=== PATIENT | female | born 1960 | race Caucasian/White ===

== ENCOUNTER → 2019-04-03 15:30 | Outpatient (CLI) | payer OTHER, SELFPAY ==
--- NOTE | ~2019-04-03 | MR_ITS ---
EXAMINATION: MR cervical spine wo con DATE: 04/03/2019 16:25 INDICATION: Neck pain. Numbness and tingling of the right arm. Cervical radiculopathy. TECHNIQUE: Magnetic resonance imaging (MRI) of the cervical spine was performed without intravenous c ontrast. Sequences included sagittal T2-weighted FSE, sagittal STIR FSE, sagittal T1-weighted FSE, ax ial MERGE, and axial T2-weighted FSE. COMPARISON: None FINDINGS: There is 2 mm retrolisthesis of C5 on C6. Vertebral body heights are normal. There are aristides ngiomas in C6 and C7 vertebral bodies. There is mildly decreased disc height at C5-C6. The spinal cor d signal intensity is normal. The following disc levels are specifically discussed: C2-C3: The disc does not extend beyond the endplate margin. There is no uncovertebral joint osteoarth ritis. There is mild right and severe left facet joint osteoarthritis. There is mild left neural fora jeannine stenosis. There is no central canal stenosis. C3-C4: The disc does not extend beyond the endplate margin. There is mild bilateral uncovertebral lee nt osteoarthritis. There is mild bilateral facet joint osteoarthritis. There is no neural foraminal s tenosis. There is no central canal stenosis. C4-C5: The disc does not extend beyond the endplate margin. There is no uncovertebral joint osteoarth ritis. There is moderate right and mild left facet joint osteoarthritis. There is no neural foraminal stenosis. There is no central canal stenosis. C5-C6: The disc is bulging. There is mild right and severe left uncovertebral joint osteoarthritis. T here is severe bilateral facet joint osteoarthritis. There is mild right and moderate left neural for aminal stenosis. There is mild central canal stenosis with ventral indentation of the spinal cord. C6-C7: There is a central protrusion. There is mild left uncovertebral joint osteoarthritis. There is no facet joint osteoarthritis. There is mild left neural foraminal stenosis. There is mild central c anal stenosis. C7-T1: The disc does not extend beyond the endplate margin. There is severe right and moderate left u ncovertebral joint osteoarthritis. There is mild right facet joint osteoarthritis. There is no neural foraminal stenosis. There is no central canal stenosis. IMPRESSION: 1. Mild cervical spondylosis. Reviewed, dictated and finalized at location A. [employer]
== END ==
PROVIDERS: Visit Provider Physician Assistant
DX: M54.12 Radiculopathy, cervical region (principal); M47.812 Spondylosis without myelopathy or radiculopathy, cervical region
CPT/HCPCS: 72141

== ENCOUNTER → 2019-11-29 12:14 | Outpatient (CLI) | payer OTHER, SELFPAY ==
--- NOTE | ~2019-11-29 | MM_ITS ---
EXAMINATION: MM screening ruth BI w sarah HISTORY: Screening TECHNIQUE: Craniocaudal and mediolateral oblique 3-D tomosynthesis images were obtained and synthetic 2-D images were generated. CAD analysis was submitted and interpreted. COMPARISON: Comparison to multiple prior studies sequentially, with oldest reviewed study dated 07/30. BREAST PARENCHYMAL COMPOSITION: There are scattered areas of fibroglandular density. FINDINGS: There is no evidence of suspicious mass, calcification, or architectural distortion to sugg est malignancy in either breast. There has been no suspicious interval change. IMPRESSION: 1. No mammographic evidence of malignancy. 2. Recommend routine screening mammography in one year. BI-RADS Category 1: Negative Reviewed, dictated and finalized at location A.
== END ==
PROVIDERS: PCP Family Medicine Adolescent Medicine; Visit Provider Obstetrics & Gynecology Gynecology
DX: Z12.31 Encounter for screening mammogram for malignant neoplasm of breast (principal)
CPT/HCPCS: 77063; 77067

== ENCOUNTER → 2020-12-22 14:42 | Outpatient (CLI) | payer OTHER, SELFPAY ==
--- NOTE | ~2020-12-22 | MM_ITS ---
EXAMINATION: MM screening ruth BI w sarah HISTORY: Screening mammogram TECHNIQUE: Craniocaudal and mediolateral oblique 3-D tomosynthesis images were obtained and synthetic 2-D images were generated. CAD analysis was submitted and interpreted. COMPARISON: 11/29/2019, 10/10/2018, 09/01/2017 bilateral screening mammogram examinations BREAST PARENCHYMAL COMPOSITION: There are scattered areas of fibroglandular density. FINDINGS: There is no evidence of suspicious mass, calcification, or architectural distortion to sugg est malignancy in either breast. There has been no suspicious interval change. IMPRESSION: 1. No mammographic evidence of malignancy. 2. Recommend routine screening mammography in one year. BI-RADS Category 1: Negative Reviewed, dictated and finalized at location A. L CAMPAIGN SPECIALIST
== END ==
PROVIDERS: PCP Family Medicine Adolescent Medicine; Visit Provider Obstetrics & Gynecology Gynecology
DX: Z12.31 Encounter for screening mammogram for malignant neoplasm of breast (principal)
CPT/HCPCS: 77063; 77067

== ENCOUNTER 2021-01-26 14:41 | Outpatient (CLI) | payer OTHER, SELFPAY ==
--- NOTE | ~2021-01-26 | DEXA_ITS ---
Bone Density Report Name: CHANCE BETANCOURT I Age: 60 Sex: Female Ethnicity: White Date of : 1960 Indication: postmenopausal; height loss; Referring Provider: DAPHNE PEREZ Study: Bone densitometry was performed. Exam Date: January 26, 2021 Accession number: [id number] Bone Density: Region BMD T-score Z-score Classification AP Spine (L1-L4) 1.059 0.1 1.7 Normal Femoral Neck (Left) 0.655 -1.8 -0.4 Osteopenia Total Hip (Left) 0.832 -0.9 0.2 Normal Total Hip Bilateral Avg 0.825 -0.9 0.2 Normal Femoral Neck (Right) 0.700 -1.3 0.0 Osteopenia Total Hip (Right) 0.817 -1.0 0.1 Normal World Health Organization criteria for BMD impression classify patients as: Normal (T-score at or above -1.0), Osteopenia (T-score between -1.0 and -2.5), or Osteoporosis (T-score at or below -2.5). 10-year Fracture Risk(1): Major Osteoporotic Fracture 8.3% Hip Fracture 1.0% Reported Risk Factors: [place] (), Neck BMD=0.655, BMI=21.1 (1) FRAX(R) Version 3.08. Fracture probability calculated for an untreated patient. Fracture probability may be lower if the patient has received treatment. Clinical Information Provided by Patient: Has used the following medications: Vitamin D Patient maximum height was 65.5 Menopause Age: 49 Drinks caffeinated beverages Onset of menses at age 14 Number of children 2 Impression: The patient has low bone mass, based on the Left Femoral Neck T-score. The patient has an estimated ten-year risk of hip fracture of 1% and an estimated ten-year risk of major fracture of 8.3%, based on the WHO FRAX algorithm. Discussion: BONE DENSITY IS LOW AT ONE OR MORE SKELETAL SITES. This patient's lowest T-score is low at one or more skeletal sites. It meets the World Health Organization's (WHO) criteria for ?low bone mass? (T-score between -1.0 and -2.5). The patient's 10-year risk of fracture as calculated by FRAX is less than the threshold where pharmacological therapy is recommended by the National Osteoporosis Foundation (NOF). However, all treatment decisions require clinical judgment and consideration of individual patient factors, including patient preferences, comorbidities, previous drug use, risk factors not captured in the FRAX model (e.g., frailty, falls, vitamin D deficiency, increased bone turnover, interval significant decline in bone density) and possible under or overestimation of fracture risk by FRAX. The patient should follow a healthful lifestyle (good nutrition with adequate calcium and vitamin D, and appropriate weight-bearing exercise). Follow-Up: Consider repeating this study in 2 to 3 years to reassess this patient's status, or sooner if there is some new clinical indication. Reported by: [facility] on 01/26/2021 3:07:00 PM.
== END 2021-01-26 14:42 | disposition home or self-care (01) ==
LOC: ANHIMG 14:44
PROVIDERS: PCP Family Medicine Adolescent Medicine; Visit Provider Obstetrics & Gynecology Gynecology
DX: Z78.0 Asymptomatic menopausal state (principal); M85.852 Other specified disorders of bone density and structure, left thigh; M85.851 Other specified disorders of bone density and structure, right thigh
CPT/HCPCS: 77080

== ENCOUNTER 2021-02-03 16:47 | Outpatient (CLI) | payer OTHER, SELFPAY ==
--- NOTE | ~2021-02-03 | MR_ITS ---
EXAMINATION: MR knee RT wo con DATE: 02/03/2021 17:49 INDICATION: ACL tear with lateral right knee pain TECHNIQUE: Magnetic resonance imaging (MRI) of the right knee was performed without intravenous contr ast. Sequences included coronal PD-weighted FSE, coronal PD-weighted FS FSE, sagittal T2-weighted FS E, sagittal PD-weighted FS FSE and axial PD weighted fat saturated FSE. COMPARISON: None. FINDINGS: Medial compartment: Complex longitudinal tear extending from the body into the posterior horn of the medial meniscus. The re has been loss of meniscal tissue from the posterior horn which is now smaller than the anterior ho rn. This could be related to to prior arthroscopy and debridement as there are small foci of suscepti bility artifact in the fat along the lateral margin of the patellar tendon. Correlate with surgical h istory. Extensive partial thickness chondral ulceration which involves greater than 50% the cartilage thickness but without degenerative subchondral changes overlying large regions of the anterior to ce ntral weightbearing medial femoral condyle. Deep chondral fissuring without degenerative subchondral changes along the anterior margin of the medial tibial plateau and posterior weightbearing medial fem oral condyle. Lateral compartment: Complex tear involving the anterior horn, body and posterior horn of the lateral meniscus. Full/near full-thickness chondral ulceration with underlying cortical irregularity at the central to posterior weightbearing lateral femoral condyle. Additional deep chondral ulceration without degenerative subch ondral changes at the central to posterior lateral tibial plateau. Patellofemoral compartment: Partial-thickness cartilage loss with deep chondral fissuring without degenerative subchondral change s at the patellar apical ridge and lateral facet. Extensive trochlear chondral ulceration, deep with mild subarticular cystlike change at the inferior aspect of the lateral trochlea and with several sma ll central subchondral osteophytes at the caudal aspect of the medial trochlea. Ligaments and tendons: Complete tear of the anterior cruciate ligament. The posterior cruciate ligament is normal.. The medi al collateral ligament and fibular collateral ligament complex are normal. The extensor mechanism is normal. The visualized medial and lateral hamstring tendons as well as the iliotibial band are normal . Fluid: Small knee joint effusion with mild synovitis at the suprapatellar pouch. No loose osteochondral bodi es identified. Moderate-sized Peres's cyst measuring 5.3 cm in craniocaudal length and 2.1 x 0.7 cm i n maximal transaxial dimensions. There is an additional incompletely visualized ganglion cyst. Extend ing cephalad along the deep margin of the semimembranosus which measures at least 3 cm craniocaudally and 2.1 x 1.6 cm transaxial dimensions. Osseous/other: Bone alignment is normal. No fracture or pathologic marrow replacing process. Mild osteoarthritis at the proximal tibiofibular articulation with mild subarticular cystic change at the tibial side of the joint space. IMPRESSION: 1. Complete tear of the anterior cruciate ligament. 2. Complex tears of the medial and lateral menisci. 3. 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 4. Moderate-sized Peres's cyst is additional moderate sized or ganglion cyst extending cephalad at th e popliteal fossa. Reviewed, dictated and finalized at location . NG TEACHER
== END 2021-02-03 16:48 | disposition home or self-care (01) ==
LOC: ANHIMG 16:53
PROVIDERS: PCP Family Medicine Adolescent Medicine; Visit Provider Orthopaedic Surgery
DX: M25.561 Pain in right knee (principal); S83.511A Sprain of anterior cruciate ligament of right knee, initial encounter; S83.271A Complex tear of lateral meniscus, current injury, right knee, initial encounter; S83.231A Complex tear of medial meniscus, current injury, right knee, initial encounter; M17.11 Unilateral primary osteoarthritis, right knee; M94.262 Chondromalacia, left knee; M71.21 Synovial cyst of popliteal space [Baker], right knee
CPT/HCPCS: 73721

== ENCOUNTER 2022-05-16 10:10 | Outpatient (CLI) | payer OTHER, SELFPAY ==
--- NOTE | ~2022-05-16 | MM_ITS ---
EXAMINATION: MM screening ruth BI w sarah HISTORY: Screening mammogram TECHNIQUE: Craniocaudal and mediolateral oblique 3-D tomosynthesis images were obtained and synthetic 2-D images were generated. CAD analysis was submitted and interpreted. COMPARISON: 12/22/2020, 11/29/2019, 10/10/2018 bilateral screening mammogram examinations BREAST PARENCHYMAL COMPOSITION: There are scattered areas of fibroglandular density. FINDINGS: There is no evidence of suspicious mass, calcification, or architectural distortion to sugg est malignancy in either breast. There has been no suspicious interval change. IMPRESSION: 1. No mammographic evidence of malignancy. 2. Recommend routine screening mammography in one year. BI-RADS Category 1: Negative Reviewed, dictated and finalized at location A.
== END 2022-05-16 10:11 | disposition home or self-care (01) ==
LOC: ANHIMG 10:13
PROVIDERS: PCP Nurse Practitioner Family; Visit Provider Nurse Practitioner
DX: Z12.31 Encounter for screening mammogram for malignant neoplasm of breast (principal)
CPT/HCPCS: 77063; 77067

== ENCOUNTER 2022-11-07 15:08 | Outpatient (CLI) | payer OTHER, SELFPAY ==
--- NOTE | ~2022-11-07 | XR_ITS ---
XR finger 1st RT min 2V 11/07/2022 15:30 Indication: Right first finger pain Procedure: 4 views right first finger Comparison: No prior studies for comparison. Findings: Mild polyarticular osteoarthritis. No erosive changes. No fracture or traumatic malalignmen t. No soft tissue abnormality. No foreign bodies. 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 Reviewed, dictated and finalized at location L. 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
== END 2022-11-07 15:09 | disposition home or self-care (01) ==
LOC: ANHIMG 15:17
PROVIDERS: PCP Nurse Practitioner Family; Visit Provider Nurse Practitioner Family
DX: M19.041 Primary osteoarthritis, right hand (principal)
CPT/HCPCS: 73140

== ENCOUNTER 2023-08-30 00:32 | Day surgery (SDC) | payer MEDICARE, OTHER, SELFPAY ==
[2023-08-24 10:18] VITALS: BMI 22.6
--- NOTE | 2023-08-24 10:19 | PC.NURSE ---
Report to the Outpatient Waiting Room, entrance under the green pavilion located off [facility], at time _0930_ on date _[id number]_. Planned Procedure Time: _1130_. Time changes happen often and if your time is changed the preop area will call you the afternoon before. - You and your visitor will be asked to self-screen and do not enter if you have any COVID symptoms. - A mask is optional within the hospital at this time. Patients may have clear liquids (water, carbonated beverages, clear teas, apple juice) until 3 hours prior to surgery with a maximum of 20 ounces. - No food from midnight until time of surgery Take the following medications with a SIP of water the morning of surgery: __None DO NOT STOP ANY OF YOUR OTHER PRESCRIPTION MEDICATIONS PRIOR TO SURGERY ?EXCEPT THE FOLLOWING Medications to discontinue per physician Vitamin D3 Date to take last [id number]__[id number] Please no make-up, nail turkmen, hairspray, perfume, deodorant, or body powder the day of surgery. No jewelry (including any body piercings) or valuables the day of surgery, leave them at home. Please take a shower or bath the night before, or the morning of, surgery with an antibacterial soap. Wear comfortable, loose fitting clothing. - Jewelry must be removed prior to entering the operating room. Rings and piercings that are not removed may be cut off. - The hospital will not accept responsibility for valuables. - Please leave all valuables, including medications, at home the day of surgery. If you are going home after surgery, a licensed powder truck driver must drive you home. - NO public transportation without another adult if you receive anesthesia. - We recommend that an adult stay with you for 24 hours following discharge. - We also recommend that you do not drive, make important decision, drink alcoholic beverages, or take any drugs that were not prescribed by your health care provider for at least 24 hours after your discharge time. Follow any additional instructions given to you from your surgeon. If you or anyone in your household have experienced Covid symptoms in the past week, please notify your surgeon or the nurse liaison at the phone number below for possible testing. Telephone instructions given to __Donna___and asked if any additional questions and then verbalized understanding. Patient advised to call surgeon office or pre surgery nurse liaison [phone] if any additional questions.
--- NOTE | 2023-08-24 10:27 | PC.NURSE ---
Report to the Outpatient Waiting Room, entrance under the green pavilion located off [facility], at time _0930_ on date _[id number]_. Planned Procedure Time: _1130_. Time changes happen often and if your time is changed the preop area will call you the afternoon before. - You and your visitor will be asked to self-screen and do not enter if you have any COVID symptoms. - A mask is optional within the hospital at this time. May have clear liquids (water, carbonated beverages, clear teas, apple juice) until 330am prior to surgery with a maximum of 20 ounces. - No food from midnight until time of surgery, No drink after 330am. Take the following medications with a SIP of water the morning of surgery: __None DO NOT STOP ANY OF YOUR OTHER PRESCRIPTION MEDICATIONS PRIOR TO SURGERY ?EXCEPT THE FOLLOWING Medications to discontinue per physician Vitamin D3 Date to take last [id number]__[id number] Please no make-up, nail malay, hairspray, perfume, deodorant, or body powder the day of surgery. No jewelry (including any body piercings) or valuables the day of surgery, leave them at home. Please take a shower or bath the night before, or the morning of, surgery with an antibacterial soap. Wear comfortable, loose fitting clothing. - Jewelry must be removed prior to entering the operating room. Rings and piercings that are not removed may be cut off. - The hospital will not accept responsibility for valuables. - Please leave all valuables, including medications, at home the day of surgery. If you are going home after surgery, a licensed courier delivery driver must drive you home. - NO public transportation without another adult if you receive anesthesia. - We recommend that an adult stay with you for 24 hours following discharge. - We also recommend that you do not drive, make important decision, drink alcoholic beverages, or take any drugs that were not prescribed by your health care provider for at least 24 hours after your discharge time. Follow any additional instructions given to you from your surgeon. If you or anyone in your household have experienced Covid symptoms in the past week, please notify your surgeon or the nurse liaison at the phone number below for possible testing. Telephone instructions given to __Donna___and asked if any additional questions and then verbalized understanding. Patient advised to call surgeon office or pre surgery nurse liaison [phone] if any additional questions.
--- NOTE | 2023-08-30 06:46 | P.OP_ITS ---
Procedure Note - Detailed Date of Procedure 08/30/23 Pre-op Diagnosis right trigger thumb Post-op Diagnosis Same Procedure Performed right trigger thumb release Surgeon Ricardo Knowles MD Anesthesia MAC Description of Procedure INFORMED CONSENT: The patient was seen and examined and marked in the pre-op are a.? The patient signed the consent form. PROCEDURE IN DETAIL:The patient taken back to OR on the stretcher in supine position. Time out performed with anesthesia, surgeon and staff agreeing on patient's name site and surgery to be performed SCDs were placed on the lower extremities and inflated. A tourniquet was placed on {right} upper extremity and antibiotics given IV After anesthesia administered sedation I injected {3}cc 1%lido and 0.5% marcaine plain at the operative site The?{right upper extremity}?was prepped and draped in sterile fashion the??{right upper extremity} was? exsanguinated with Esmarch bandage and tourniquet inflated to 250mmHg I proceeded with making an oblique incision over the right thumb A1 pavel just proximal to the MP joint flexion crease through skin and dermis with a 15 blade scalpel. Littler scissors were used to spread through subcutaneous tissue down to the A1 pavel. The A1 pavel was identified and sharply incised initially with a 15 blade scalpel. Littler scissors were used to spread above and below it proximally and distally completing the transection entirely. Ragnell retractor was used to withdraw the FPL tendon for inspection. the tendon was free of masses and synovitis but still locking with ipj in flexion and was able to palpate this was occuring around oblique puley. I extended incision in cleopatra fashion across mpj flexion crease to elevate skin and expose oblique pavel. I proceeded with release of the oblique pavel and it was necessary for complete pavel release to prevent further triggering of FPL. The tendon was now gliding smoothly in sheath an no further triggering appreciated. no bowstringing was appreciated. I irrigated with normal saline. Closure of skin was done with 4-0 chromic. A dressing of xeroform, 4x4, carley, and an vipul bandage after the tourniquet was let down noting the hand was warm and well perfused. The patient was then awaken from anesthesia and transferred to the recovery room in stable condition.? Complications - none EBL- 0cc Disposition - home in stable conditions roxanna wright pa-c was essential for positioning, retraction, closure and dressing placement [facility] Billing Surgery - Charge Forward: Surgery Billing (30486 x2 adding modifier XS to the second code. [id number] for roxanna)
--- NOTE | 2023-08-30 06:46 | WPDHPUPDATE1 ---
History and Physical Update Update Date/Time: 08/30/23 06:46 Patient seen and examined in pre-operative holding area. No interval change in medical history or symptoms. Patient recalls previous discussion of benefits and alternatives to procedure. Continues to desire to proceed with right thumb a1 pavel release. Reviewed procedure, post-op expectations and risks including but not limited to bleeding, infection, injury to tendon/nerve/vessel, decreased hand function, stiffness, RSD, no change or worsening of symptoms. I discussed the possible use of assistants and their participation in the case. Patient stated understanding and signed the consent form wishing to proceed.
[2023-08-30] MEDS: LACTATED RINGERS 1,000 ML 30 ML IV CONT (09:45)
[2023-08-30 09:50] VITALS: BP 132/79; PULSE 59; RESP 16; TEMP 36.2; O2SAT 99
[2023-08-30 09:51] VITALS: BMI 22.6
--- NOTE | 2023-08-30 10:02 | WPDANESEPPF ---
Anes - Initial Pre Proc Eval Procedure: Operation Date: 08/30/23 11:30 Proposed Procedures p Right Thumb A-1 Karel Release - Ricardo Knowles MD Date/Time: 08/30/23 10:02 Surgeon: Ricardo Knowles MD Pre Op Diagnosis: right trigger thumb Patient Data Age: 63 Gender: F Height: 1.65 m Weight: 61.55 kg Last Vital Signs Temp 97.1 F L 08/30/23 09:50 Pulse 59 L 08/30/23 09:50 Resp 16 08/30/23 09:50 BP 132/79 08/30/23 09:50 Pulse Ox 99 08/30/23 09:50 Allergies Allergy/AdvReac Type Severity Reaction Status Date / Time No Known Drug Allergies Allergy Unknown unknown Verified 08/24/23 10:09 Home Medications Medication Instructions Recorded Confirmed Type cholecalciferol (vitamin D3) 25 25 mcg PO DAILY 08/24/23 08/24/23 History mcg (1,000 unit) tablet (Vitamin D3) tramadol 50 mg tablet 50 mg PO Q6H PRN pain #12 tabs 08/30/23 Rx Patient hx anesthesia problems: none Family hx anesthesia problems: none Results Review: All pre-operative results and documents have been reviewed as part of the pre-operative evaluation. [facility] Past Medical History Medical History Complete tear of anterior cruciate ligament of right knee Complex tear of lateral meniscus of right knee Complex tear of medial meniscus of right knee Degenerative arthritis of knee, bilateral Encounter to establish care Herpesviral vesicular dermatitis Insomnia Low back pain Pain around toenail Pain of right thumb Right knee pain Trigger thumb, right thumb Surgical History Surgical History History of left knee surgery (~1992) Family History Family History Father Cancer Mother Hypertension Sibling Cancer Social History Social History Smoking status: Never smoker Alcohol intake: current Drinks per week: 3 Alcohol use details: Occasionally Substance use: never Substance use type: does not use Do You Feel Safe in your Home?: Yes Lack of Transportation: No Lack of Food: Never True Current Housing: I Have Housing Concerned About Future Housing: No Difficulty Paying Gas/Electric Bills: No Difficulty Paying for Meds: No Currently Unemployed: No Education: Bachelor's Degree Difficulty w/ Childcare or Family Care: No Living arrangements: with family Occupation/Education: retired Spiritual care concerns: No Anes - Eval Final PreProcedure Day of Procedure 08/30/23 10:02 Patient weight: normal Heart: regular rate and rhythm Lungs: clear to auscultation Airway: Mallampati scale class II Neurological: alert and oriented Last oral intake: >/= 8 hours ASA classification: I Emergent: no Anesthetic plan: proceed Anesthesia type and monitoring: general GIVS and standard monitoring Results Review: All pre-operative results and documents have been reviewed as part of the pre-operative evaluation. Pt very active w pickleball, swimming, disc golf, no cp or sob. Informed Consent: The patient's anesthetic plan and its attendant risks and benefits were discussed with the patient/family/POA. Questions were solicited and answers provided to the satisfaction of the patient/family/POA.
[2023-08-30] MEDS: ceFAZolin 2 GM/D5W 50 ML 2 GM/50 ML BAG IVPB (11:37)
[2023-08-30] MEDS: LIDOCAINE HCL 1% LOCAL INJ 10 ML VIAL 1.5 ML INFILTRATE (11:41)
[2023-08-30] MEDS: BUPivacaine HCL 0.5% 10 ML AMP 1.5 ML INFILTRATE (11:54)
[2023-08-30 12:00] VITALS: BP 109/60; PULSE 63; RESP 14; O2SAT 98
[2023-08-30 12:30] VITALS: BP 106/64; PULSE 63; RESP 16; O2SAT 98
[2023-08-30 12:45] VITALS: BP 126/75; PULSE 54; RESP 16; O2SAT 99
[2023-08-30 13:00] VITALS: BP 129/68; PULSE 56; RESP 16; O2SAT 98
== END 2023-08-30 13:12 | disposition home or self-care (01) ==
PROVIDERS: PCP Nurse Practitioner Family; Visit Provider Plastic Surgery
PROC: (CPT 26055; principal; 2023-08-30 11:30)
DX: M65.311 Trigger thumb, right thumb (principal); M77.11 Lateral epicondylitis, right elbow; G47.00 Insomnia, unspecified; Z98.890 Other specified postprocedural states; Z80.9 Family history of malignant neoplasm, unspecified
CPT/HCPCS: 26055; A9270; J0690; J2250; J2405; J2704; J3010; J7120

== ENCOUNTER 2023-09-07 13:48 | Outpatient (CLI) | payer MEDICARE, OTHER, SELFPAY ==
--- NOTE | ~2023-09-07 | DEXA_ITS ---
Bone Density Report Name: CHANCE BETANCOURT I Age: 63 Sex: Female Ethnicity: White Date of : 1960 Indication: postmenopausal; screening for osteoporosis; Referring Provider: EMMANUEL, MAGDALENE Study: Bone densitometry was performed. Exam Date: September 07, 2023 Accession number: [id number] Bone Density: Region BMD T-score Z-score Classification AP Spine(L1-L4) 1.043 0.0 1.7 Normal Femoral Neck (Left) 0.654 -1.8 -0.2 Osteopenia Total Hip (Left) 0.842 -0.8 0.4 Normal Femoral Neck (Right) 0.682 -1.5 0.0 Osteopenia Total Hip (Right) 0.889 -0.4 0.8 Normal Total Hip Mean 0.866 -0.6 0.6 Normal World Health Organization criteria for BMD impression classify patients as: Normal (T-score at or above -1.0), Osteopenia (T-score between -1.0 and -2.5), or Osteoporosis (T-score at or below -2.5). 10-year Fracture Risk(1): Major Osteoporotic Fracture 9.2% Hip Fracture 1.2% Reported Risk Factors: [place] (), Neck BMD=0.654, BMI=23.2 (1) FRAX(R) Version 3.08. Fracture probability calculated for an untreated patient. Fracture probability may be lower if the patient has received treatment. Previous Exams: Region Exam Age BMD T-score BMD Change BMD Change Date g/cm2 vs Baseline vs Previous Total Hip(Left) 09/07/2023 63 0.842 -0.8 0.009 (1.1%) 0.009 (1.1%) 01/26/2021 60 0.832 -0.9 Total Hip(Right) 09/07/2023 63 0.889 -0.4 0.072 (8.8%)* 0.072 (8.8%)* 01/26/2021 60 0.817 -1.0 *Denotes significance at 95% confidence level, LSC for Total Hip = 0.027 g/cm2 Clinical Information Provided by Patient: Has used the following medications: Vitamin D Menopause Age: 49 Drinks caffeinated beverages Onset of menses at age 13 Number of children 2 Missed period for more than 6 months in a row Impression: The patient has low bone mass, based on the Left Femoral Neck T-score. The patient has an estimated ten-year risk of hip fracture of 1.2% and an estimated ten-year risk of major fracture of 9.2%, based on the WHO FRAX algorithm. No significant bone loss was observed. Discussion: BONE DENSITY IS LOW AT ONE OR MORE SKELETAL SITES. This patient's lowest T-score is low at one or more skeletal sites. It meets the World Health Organization's (WHO) criteria for ?low bone mass? (T-score between -1.0 and -2.5). The patient's 10-year risk of fracture as calculated by FRAX is less than the threshold where pharmacological therapy is recommended by the National Osteo
--- NOTE | ~2023-09-07 | MM_ITS ---
EXAMINATION: MM screening ruth BI w sarah HISTORY: Screening TECHNIQUE: Craniocaudal and mediolateral oblique 3-D tomosynthesis images were obtained and synthetic 2-D images were generated. CAD analysis was submitted and interpreted. COMPARISON: Comparison to multiple prior studies sequentially, with oldest reviewed study dated 09/05. BREAST PARENCHYMAL COMPOSITION: Not dense: There are scattered areas of fibroglandular density. FINDINGS: There is no evidence of suspicious mass, calcification, or architectural distortion to sugg est malignancy in either breast. There has been no suspicious interval change. IMPRESSION: 1. No mammographic evidence of malignancy. 2. Recommend routine screening mammography in one year. BI-RADS Category 1: Negative Reviewed, dictated and finalized at location B.
== END 2023-09-07 13:49 | disposition home or self-care (01) ==
PROVIDERS: PCP Nurse Practitioner Family; Visit Provider Nurse Practitioner
DX: Z12.31 Encounter for screening mammogram for malignant neoplasm of breast (principal); M85.89 Other specified disorders of bone density and structure, multiple sites; Z78.0 Asymptomatic menopausal state; Z13.820 Encounter for screening for osteoporosis
CPT/HCPCS: 77063; 77067; 77080

== ENCOUNTER 2023-10-10 09:34 | Outpatient (CLI) | payer MEDICARE, OTHER, SELFPAY ==
--- NOTE | 2023-10-10 09:50 | ECG_ITS ---
Test Date: 2023-10-10 09:55:22 Measurements Intervals [place] Rate: 63 P: 44 OK: 127 QRS: 12 QRSD: 107 T: 26 QT: 403 QTc: 413 Interpretive Statements SINUS RHYTHM INCOMPLETE RIGHT BUNDLE BRANCH BLOCK [90+ ms QRS DURATION, TERMINAL R IN V1/V2, 40+ ms S IN I/aVL/V4/V5/V6] NONSPECIFIC ST & T-WAVE ABNORMALITY No previous ECG available for comparison Electronically Signed On 10-10-2023 16:14:22 CDT by Gloria Calderon M.D.
== END 2023-10-10 09:35 | disposition home or self-care (01) ==
PROVIDERS: PCP Nurse Practitioner Family; Visit Provider Nurse Practitioner Family
DX: Z01.818 Encounter for other preprocedural examination (principal); I45.10 Unspecified right bundle-branch block
CPT/HCPCS: 93005

== ENCOUNTER 2024-05-02 10:34 | Outpatient (CLI) | payer MEDICARE, OTHER, SELFPAY ==
--- NOTE | 2024-05-02 11:04 | ECG_ITS ---
Test Date: 2024-05-02 11:27:34 Measurements Intervals [place] Rate: 65 P: 31 DE: 120 QRS: -4 QRSD: 106 T: 46 QT: 402 QTc: 420 Interpretive Statements SINUS RHYTHM INCOMPLETE RIGHT BUNDLE BRANCH BLOCK [90+ ms QRS DURATION, TERMINAL R IN V1/V2, 40+ ms S IN I/aVL/V4/V5/V6] Electronically Signed On 05-02-2024 12:13:21 CDT by Ronald Carreno M.D.
--- OUTSIDE RECORDS SUMMARY | 2024-05-02 11:26 | XMS_ITS | Clinical Summary ---
Author Organization [facility] Address [address] [place] [address] Care Team Providers Care Lead Systems Analyst Name Role Phone Don Worthington MD Primary Care Provider +1- [phone] Source Comments [facility],non-owned Affiliates and Associated Physician Practices is amultiple site organization consisting of ambulatory clinics and hospital sitesin [place], [place], [place] and [place]. This disclosure is being madepursuant to the Care Everywhere program and may not contain all information available regarding this patient. Last updated 17.[facility] Allergies No known active allergies Medications * Be aware that medications may not be up to date on this document. Alwaysverify current medications with the patient. Medication Sig Dispensed Refills Start Date End Date Status TRAZODONE HCL PO Active predniSONE (DELTASONE) 10 MG tabletIndications:All ergic contact dermatitis due to plants, except food 5 tab PO QD x3 day,then 4 tab PO QD x3 day,then 3 tab PO QD x3 day,then 2 tab PO QD x3 day,then 1 tab PO QD x3 days,Take with food 45 Tab 08/28/2016 Active triamcinolone acetonide (KENALOG) 0.1 % ointmentIndications:A llergic contact dermatitis due to plants, except food Apply to affected area 2 times daily Thin layer to affected areas, do not use on face 15 g 08/28/2016 Active Family History Medical History Relation Name Comments Cancer - Lung Father Arthritis - Osteo Mother Cancer - Breast Sister Relation Name Status Comments Father Mother Sister Social History Tobacco Use Types Packs/Day Years Used Date Smoking Tobacco: Never Smokeless Tobacco: Never Sex and Gender Information Value Date Recorded Sex Assigned at Not on file Gender Identity Not on file Sexual Orientation Not on file Last Filed Vital Signs Vital Sign Reading Time Taken Comments Blood Pressure 122/74 08/28/2016 2:56 PM CDT Pulse 74 08/28/2016 2:56 PM CDT Temperature 36.9 C (98.4 F) 08/28/2016 2:56 PM CDT Respiratory Rate 16 08/28/2016 2:56 PM CDT Oxygen Saturation 98% 08/28/2016 2:56 PM CDT Inhaled Oxygen Concentration - - Weight 53.1 kg (117 lb) 08/28/2016 2:56 PM CDT Height 162.6 cm (5' 4 ) 08/28/2016 2:56 PM CDT Body Mass Index 20.08 08/28/2016 2:56 PM CDT Plan of Treatment Health Maintenance Due Date Last Done Comments BONE DENSITY TESTING 1960 COLOGUARD (AGES 45-75) - COL ON CA SCREENING 1960 COLON MONITORING 1960 COLONOSCOPY - COLON CA SCREENING 1958 CT COLONOGRAPHY - COLON CA SCREENING 1960 Colorectal Cancer Screening 1960 FIT - COLON CA SCREENING 1960 FLEX SIG - COLON CA SCREENING 1960 LIPID TESTING 1960 MAMMOGRAM 1960 MEDICARE AWV 12 MONTHS 1960 PAP SMEAR 1960 HIV SCREENING 1973 HEPATITIS C SCREENING 08/18/1976 DTAP/TDAP/TD VACCINES (1 - Tdap) 1977 PNEUMOCOCCAL VACCINE 50+ (1 of 1 - PCV) 2008 ZOSTER VACCINE (1 of 2) 2008 COVID-19 VACCINE ( - 2023-2 5 season) 2023 INFLUENZA VACCINE (#1) 2023 DEPRESSION SCREENING 02/14/2024 Respiratory Syncytial Virus (RSV) Vaccine Pt: or over 60 yrs (1 - 1-dose 75+ series) 2033 HEPATITIS B VACCINE Aged Out No longe r eligible based on patient's age to complete this topic HIB VACCINE Aged Out No longer eligi ble based on patient's age to complete this topic HPV VACCINE Aged Out No longer eligi ble based on patient's age to complete this topic MENINGOCOCCAL (Group B) VACC INE SHARED DECISION-MAKING Aged Out No longer eligibl e based on patient's age to complete this topic MENINGOCOCCAL GROUPS A/C/Y/W VACCINE Aged Out No longer eligible b ased on patient's age to complete this topic Care Teams Lead Systems Analyst Relationship Specialty Start Date End Date Don Worthintgon MD [address] [place] [address] [place] [phone] PCP - General 03/14/19
--- OUTSIDE RECORDS SUMMARY | 2024-05-02 11:26 | XMS_ITS | Clinical Summary ---
Author Organization [facility] [place] [address] Address [address] [place] [phone] Care Team Providers Care Deliverer Pharmacy Name Role Phone Feng Deras MD Primary Care Prov ider Allergies No known active allergies Medications clobetasoL (TEMOVATE) 0.05 % ointmentIndicat ions:Hand dermatitis Apply topically two times daily as needed for rash on hands 30 g 2 4 Active Active Problems Problem Noted Date Diagnosed Date Abnormal mammogram 08/24/2009 Social History Tobacco Use Types Packs/Day Years Used Date Smoking Tobacco: Never Assessed Personal Safety Answer Date Recorded Getting School Help Needed Not on file 04/28 Comments Unknown Sex and Gender Information Value Date Recorded Sex Assigned at Not on file Legal Sex Female 2:34 AM RADIOLOGIC TECH Gender Identity Not on file Sexual Orientation Not on file Plan of Treatment Health Maintenance Due Date Last Done Comments Breast Cancer Screening-Mammogram 1960 Cervical Cancer Screening 1960 Colon Cancer Screening-Colonoscopy 1960 Depression Screening 1960 Fall Risk Assessment 1960 Hepatitis C Screening 1960 Osteoporosis Screening-Bone Density Scan 1960 Hepatitis B Screening 1976 Zoster Vaccine (1 of 2) 2008 Well Visit 65+ 08/24/2023 Covid-19 Vaccine (3 - 2023-2 5 season) 2023 05/05/2020, 03/25/2020 DTaP/Tdap/Td Vaccine (2 - Td or Tdap) 11/01/2028 11/01/2018 Influenza Vaccine Completed 11/13/2023, , 11/16/2021, Additional history exists Pneumococcal vaccine 65+ Completed 11/13/2023 Insurance [facility] CHOICE PLUS MEDICARE [facility] Care Teams Deliverer Pharmacy Relationship Specialty Start Date End Date Feng Deras MD [address] [place] [address] PCP - General Family Medicine 12/11/20
--- OUTSIDE RECORDS SUMMARY | 2024-05-02 11:26 | XMS_ITS | Referral Summary ---
Author Organization [facility] [place] [address] Address [address] [place] [phone] Care Team Providers Care Duct Installer Name Role Phone Feng Deras MD Primary [...] on file Legal Sex Female 2:34 AM PLATE SENSITIZER Gender Identity Not on file Sexual Orientation Not on file Plan of Treatment Not on file Insurance [facility] CHOICE PLUS MEDICARE [facility] Care Teams Duct Installer Relationship Specialty Start Date End Date Feng Deras MD [address] [place] [address] PCP - General Family Medicine 12/11/20
--- OUTSIDE RECORDS SUMMARY | 2024-05-02 11:26 | XMS_ITS | Clinical Summary ---
Author Organization [facility] Address [address] [facility] Attn: Epic Prelude ADT [place]IA [place] [address] Care Team Providers Care Typewriter Ribbon Winder Name Role Phone Unavailable Primary Care Provider Unavailabl e Social History Tobacco Use Types Packs/Day Years Used Date Smoking Tobacco: Never Assessed Comments Unknown Sex and Gender Information Value Date Recorded Sex Assigned at Not on file Legal Sex Female 2:57 AM WATCH CRYSTAL MOLDER Gender Identity Not on file Sexual Orientation Not on file Plan of Treatment Health Maintenance Due Date Last Done Comments DTAP/TDAP/TD VACCINES (1 - Tdap) 1977 BREAST CANCER SCREENING 1998 COLORECTAL SCREENING 08/24/2003 Colorectal Cancer Screening 08/24/2003 FIT-DNA Q 3 years 08/24/2003 FIT/FOBT Q 1 year 08/24/2003 Flex Sig/CT Colonography Q 5 years 08/24/2003 PNEUMOCOCCAL VACCINE 50+ YEARS (1 of 1 - PCV) 08/24/19 09 ZOSTER VACCINE (1 of 2) 2008 OSTEOPOROSIS SCREENING 08/24/2023 INFLUENZA VACCINE (#1) 2023 RSV VACCINE (60+ or ) (1 - 1-dose 75+ series) 2033
--- OUTSIDE RECORDS SUMMARY | 2024-05-02 11:26 | XMS_ITS | Encounter Summary ---
Author Organization [facility] Address [address] [place] [address] Care Team Providers Care Box Estimator Name Role Phone Don Worthington MD Primary Care Provider [phone]- [phone] Sarah Parker FLATBED TRUCK DRIVER-CONSULTING SERVICES MANAGER Unavailable [phone] Encounter Details Date Type Department Care Team (Late st Contact Info) Description 03/14/2019 Lab Requisition [facility] DermPath Lab [address] [place] [place] [phone] Amos Redman MD [address] [place] [address] Social History Tobacco Use Types Packs/Day Years Used Date Smoking Tobacco: Never Smokeless Tobacco: Never Sex and Gender Information Value Date Recorded Sex Assigned at Not on file Gender Identity Not on file Sexual Orientation Not on file documented as of this encounter Plan of Treatment Not on file documented as of this encounter Procedures Procedure Name Priority Date/Time Associated Diagnosis Comments DERMATOPATHOLOGY Routine 03/13/2019 12:0 0 AM CROWD CONTROLLER documented in this encounter Results * DERMATOPATHOLOGY (03/13/2019 12:00 AM CROWD CONTROLLER) Case Report Dermatopathology Report Case: [id number] Authorizing Provider: Amos Redman MD Collected: 03/13/2019 12:00 AM Ordering Location: [facility] DermPath Lab Received: 03/14/2019 01:56 PM Pathologist: Georgie Ryan MD Specimen: Skin, left mid ext FA 0 3:22 PM [facility] DERMATOPATHOLOGY LABORATORY Final Diagnosis Specimen A. SKIN, left mid ext FA: BENIGN VERRUCOUS KERATOSIS, ERODED (L82.1) NOT PRESENT AT SAMPLED MARGIN 0 3:22 PM [facility] DERMATOPATHOLOGY [facility]ORAT[facility] Clinical History R/O SCC. Check margins. 0 3:22 PM [facility] DERMATOPATHOLOGY [facility] Gross Description Specimen A: Received is one formalin filled container labeled with the patients name and designated left mid ext FA. The specimen consists of a shave removal measuring [id number] inked. Jar 0. 0 3:22 PM [facility] DERMATOPATHOLOGY [facility]OR[facility]ORY Microscopic Description Specimen A. SKIN, left mid ext FA: Sections show hyperkeratosis, papillomatosis, hypergranulosis, and acanthosis. These histological findings can be seen in a verruca vulgaris or a seborrheic keratosis. The epidermis is focally necrotic and covered with a scale-crust. There is fibrin at the base. This lesion is not present at the sampled margin of the specimen. 0 3:22 PM [facility] DERMATOPATH[facility]Y [facility]ORAT[facility] Disclaimer An external and internal positive and negative controls are appropriate for the histochemical, immunohistochemical and immunofluorescence stain(s) in this case (if any), except where stated explicitly. The performance characteristics of the stain(s) cited in this report were developed and its performance characteristic determined by the Dermatopathology Laboratory at [facility], directed by Dr. Bam Ryan. These tests need not be, and therefore are not, approved by the [place] Food and Drug Administration. The tests are used for clinical purposes. Billing Codes Specimen Charges Stain Charges 65175 1 0 3:22 PM CROWD CONTROLLER DERMATOPATHOLOGY LABORATORY Embedded Images 0 3:22 PM [facility] DERMATOPATH[facility] Pathology/Cytolog y TISSUE SPECIMEN FROM SKIN / Unknown 03/13/2019 03/14/2019 1:56 PM CROWD CONTROLLER Amos Redman MD LAB - PATHOLOGY/CYTO LOGY ORDERABLES DERMATOPATHOLOGY LABORATORY [facility] - Department of Dermatology [address] [place] [address], [facility] [phone] documented in this encounter Visit Diagnoses Not on filedocumented in this encounter Care Teams Box Estimator Relationship Specialty Start Date End Date Don Worthington MD [address] [place] [address] [place] [phone] PCP - General 03/14/19 Sarah Parker, FLATBED TRUCK DRIVER-CONSULTING SERVICES MANAGER [address] [place] [address] [place] [address] PCP - Attributed-[employer] [place] 06/13/22 08/31/23 documented as of this encounter
--- OUTSIDE RECORDS SUMMARY | 2024-05-02 11:26 | XMS_ITS | Encounter Summary ---
Author Organization [facility] Address [address] [place] [address] Care Team Providers Care Edge Grinder Machine Name Role Phone Don Worthington MD Primary Care Provider [phone]- [phone] Encounter Details Date Type Department Care Team (Late st Contact Info) Description 12/19/2023 Lab Requisition [facility] - DermPath Lab [address] [place] [phone] Amos Redman MD [address] [place] [address] Social History Tobacco Use Types Packs/Day Years [...] Priority Date/Time Associated Diagnosis Comments DERMATOPATHOLOGY Routine 12/18/2023 3:33 AM HEADLINE WRITER documented in this encounter Results * DERMATOPATHOLOGY (12/18/2023 3:33 AM HEADLINE WRITER) Case Report Dermatopathology Report Case: [id number] Authorizing Provider: Amos Redman MD Collected: 12/18/2023 03:33 AM Ordering Location: [facility] - Received: 12/19/2023 03:25 PM DermPath Lab Pathologist: Georgie Ryan MD Specimen: Skin, distal dorsal right thigh 12:42 PM [facility] DERMATOPATHOLOGY LABORATORY Amended Report Clerical error in laboratory the Breslow thickness is 0.2 mm, synoptic report text corrected. 12:42 PM [facility] DERMATOPATHOLOGY LABORATORY Final Diagnosis Specimen A. SKIN, distal dorsal right thigh: MALIGNANT MELANOMA, SUPERFICIAL SPREADING TYPE BRESLOW THICKNESS 0.2 MM, SAJAN LEVEL II PRESENT AT MARGIN (C43.71) (see microscopic description) Requires the attention of the treating physician. 12:42 PM [facility] DERMATOPATHOLOGY LABORATORY Amendment electronically signed by Geogrie Ryan MD on 12/27/2023 at 12:41 PM Clinical History R/O HAK 12:42 PM [facility] DERMATOPATHOLOGY LABORATORY Gross Description Specimen A: Received is one formalin filled container labeled with the patient's name and designated distal dorsal right thigh. The specimen consists of a shave biopsy measuring 9x7x1 mm. Jar 0. 12:42 PM [facility] DERMATOPATHOLOGY LABORATORY Microscopic Description Specimen A. SKIN, distal dorsal right thigh: There is a proliferation melanocytes distributed in an irregular pattern singly and in nests at all levels of the epidermis. In the dermis there are small nests and rare single scattered melanocytes which are best appreciated on MART-1/Melan A. This lesion is present at the margin of the specimen. 12:42 PM [facility] DERMATOPATHOLOGY LABORATORY Disclaimer An external and internal positive and negative controls are appropriate for the histochemical, immunohistochemical and immunofluorescence stain(s) in this case (if any), except where stated explicitly. The performance characteristics of the stain(s) cited in this report were developed and its performance characteristic determined by the Dermatopathology Laboratory at [facility], directed by Dr. Bam Ryan. These tests need not be, and therefore are not, approved by the [place] Food and Drug Administration. The tests are used for clinical purposes. Billing Codes Specimen Charges Stain Charges 66811 1 20083 1 12:42 PM [facility] DERMATOPATHOLOGY LABORATORY Embedded Images 12:42 PM [facility] DERMATOPATHOLOGY LABORATORY Synoptic Report INVASIVE MELANOMA OF THE SKIN: Biopsy INVASIVE MELANOMA OF THE SKIN: BIOPSY - All Specimens 8th Edition - Protocol posted: 01/25/2023 SPECIMEN Procedure: Biopsy, shave Specimen Laterality: Right TUMOR Tumor Site: Skin of lower limb and / or hip: distal dorsal right thigh Histologic Type: Low-cumulative sun damage (CSD) melanoma (including superficial spreading melanoma) Maximum Tumor (Breslow) Thickness (Millimeters): At least: 0.2 mm : tumor is present at the surgical margin; therefore, the final depth may not exceed the current one Ulceration: Not identified Anatomic (Sajan) Level: At least level: II : tumor is present at the surgical margin; therefore, the final depth may not exceed the current one Mitotic Rate: None identified Microsatellite(s): Cannot be determined Lymphatic and / or Vascular Invasion: Not identified Neurotropism: Not identified Tumor-Infiltrating Lymphocytes: Present, non-brisk Tumor Regression: Present MARGINS Margin Status for Invasive Melanoma: All margins negative for invasive melanoma Margin Status for Melanoma In Situ: Melanoma in situ present at margin Margin(s) Involved by Melanoma In Situ: Peripheral pTMN CLASSIFICATION (AJCC 8th Edition) Reporting of pT category is based on information available to the pathologist at the time the report is issued. As per the AJCC (Chapter 1, 8th Ed.) it is the managing physician s responsibility to establish the final pathologic stage based upon all pertinent information, including but potentially not limited to this pathology report. pT Category: pT1a 4 12:42 PM HEADLINE WRITER DERMATOPATHOLOGY LABORATORY Pathology/Cytolo gy TISSUE SPECIMEN FROM SKIN / Unknown 12/18/2023 3:33 AM HEADLINE WRITER 12/19/2023 3:25 PM HEADLINE WRITER Amos Redman MD LAB - PATHOLOGY/CYTO LOGY ORDERABLES DERMATOPATHOLOGY LABORATORY [facility] - Department of Dermatology [address] [phone] documented in this encounter Visit Diagnoses Not on filedocumented in this encounter Care Teams Edge Grinder Machine Relationship Specialty Start Date End Date Don Worthington MD [address] [place] [address] [address] [place] [phone] PCP - General 03/14/19 documented as of this encounter
--- OUTSIDE RECORDS SUMMARY | 2024-05-02 11:26 | XMS_ITS | Encounter Summary ---
Author Organization [facility] Address [address] [place] [address] Care Team Providers Care Landfill Gas Plant Field Technician Name Role Phone Unavailable Primary Care Provider Unavailabl e Encounter Details Date Type Department Care Team (Latest Contact Info) Description 11/24/1998 Inpatient Historical HIS PATIENT IN A BED Yanira Luevano MD [address] [place] [address] [place] [address] Na Tineo MD [address] [place] [address] Precipitate labor, with delivery (Primary Dx) Social History Tobacco Use Types Packs/Day Years Used Date Smoking Tobacco: Never Assessed Comments Unknown Sex and Gender Information Value Date Recorded Sex Assigned at Not on file Legal Sex Female 2:57 AM PRE CODER Gender Identity Not on file Sexual Orientation Not on file documented as of this encounter Plan of Treatment Not on file documented as of this encounter Visit Diagnoses Diagnosis Precipitate labor, with delivery- Primary documented in this encounter
--- OUTSIDE RECORDS SUMMARY | 2024-05-02 11:26 | XMS_ITS | Data Portability ---
Author Organization [employer], [facility] Address [address] [address] Assessment Encounter Date Assessment Date Assessment LastModified by Organization Details LastModified Time 06/07/2021 06/07/2021 60 y/o F here for a group medical visit focusing on optimizing BMAC procedure for bilateral knees. Preprocedural screening labs were reviewed and discussed with patient, and post-procedure plan was discussed in detail. Feel patient would benefit from attending health optimization program to help meet her overall treatment goals. Additionally, with Vitamin D of 51 would recommend vitamin D 5,000 IU daily. She was given information regarding same. All questions answered. May follow up if she wishes to pursue health optimization. Return to clinic sooner for worsening symptoms. Greater than 15 minutes was spent with the patient in direct evaluation and subsequent care planning. [email or web address] Not available 06/07/2021 16:49:11 Plan of Treatment Reminders Order Date Submit Date Provider Last Modified By Organization Details Last Modified Time Details Appointments None record ed. Lab None record ed. Referral None record ed. Procedures None record ed. Surgeries None record ed. Imaging None record ed. Medication Orders None record ed. Patient TargetsNo targets recorded. Patient InstructionsNo instructions recorded. Reason for Referral None Reported. Results Created Date Observation Date Name Description Value Unit Range Abnormal Flag Note LastModifiedBy Organization Detail LastModifiedTime 05/26/19 22 05/29/2021 HS CRP hs CRP 3.7 mg/L high Refer ence Range Optim al <1.0 Reina HI et al. Endoc r Pract .2017 ;23(S uppl 2):1- 87. For ages >17 Years : hs-CR P mg/L Risk Accor ding to AHA/C DC Guide lines <1.0 Lower relat pablo cardi ovasc ular risk. 1.0-3 .0 [place] ge relat pablo cardi ovasc ular risk. 3.1-1 0.0 Highe r relat pablo cardi ovasc ular risk. Consi mulu retes ting in 1 to 2 weeks to exclu de a benig n trans ient eleva tion in the basel ine CRP value secon reyna to infec tion or infla mmati on. >10.0 Persi stent eleva tion, upon retes ting, may be assoc iated with infec tion and infla mmati on. Not Available [facility] [address] [place], [address], 05/29/2021 12:33:29 05/26/19 22 05/29/2021 CLIEN T EDUCA TION TRACK ING client education tracking The Requi sitio n we recei alfredito did not inclu de a [facility] accou nt numbe r. To preve nt delay s in testi ng and proce ssing of your order s pleas e provi de the follo wing infor matio n with every order submi tted: [facility] accou nt numbe r and accou nt name Clien t addre ss Clien t phone and fax numbe r NPI numbe r of order ing physi yamini along with the physi yamini name. Not Available [facility] [address] [place], [address], 05/29/2021 12:33:30 05/26/19 22 05/29/2021 VITAM IN D,25- OH,TO JAQUELIN,I A vitamin D,25-oh,tota l,ia 51 NG/mL 30-100 normal Vitam in D Statu s 25-OH Vitam in D: Defic iency : <20 ng/mL Insuf ficie ncy: 20 - 29 ng/mL Optim al: > or = 30 ng/mL For 25-OH Vitam in D testi ng on patie nts on D2-noe pplem entat ion and patie nts for whom quant itati on of D2 and D3 fract ions is requi red, the [facility] Assur eD(TM ) 25-OH VIT D, (D2,D 3), LC/MS /MS is recom angel d: order code [id number] (laura ents >2yrs ). See Note 1 Note 1 For addit ional infor miguel perez e refer to http: //[facility] adonay encarnacionQue stDia gnost ics.c om/fa q/FAQ 199 (This link is being provi ded for infor kemi randhawa/ educa julita l purpo ses only. ) Not Available [facility] [address], [place], [address], 05/29/2021 12:33:31 05/26/19 22 05/29/2021 HEMOG LOBIN A1C hemoglobin A1C 5.2 %_of_ total _HGB <5.7 normal For the purpo se of screkayley iyer for the prese nce of diabe isaías: <5.7% Consi stent with the absen ce of diabe isaías 5.7-6 .4% Consi stent with incre ased risk for diabe isaías (pred iabet es) > or =6.5% Consi stent with diabe isaías This assay resul t is consi stent with a decre ased risk of diabe isaías. Curre ntly, no conse nsus exist s alison fu use of hemog lobin A1c for diagn osis of diabe isaías in child eliot. Accor ding to Ameri can Diabe isaías Assoc iatio n (ADA) guide lines , hemog lobin A1c <7.0% repre sents optim al contr ol in non-p regna nt diabe tic patie nts. Diffe rent metri cs may apply to speci fic patie nt popul ation s. Stand ards of Medic al Care in Diabe isaías(A DA). Not Available [facility] [address], [place], [address], 05/29/2021 12:33:31 05/26/19 22 05/29/2021 TESTO STERO NE, FREE (DIAL YSIS) AND TOTAL ,MS testosterone , total, MS 38 NG/dL 2-45 For addit ional infor miguel perez e refer to https ://ed ucati on.qu fco zeldaCleave Biosciencess. com/f aq/FA Q165 (This link is being provi ded for infor kemi nal/e ducat ional purpo ses only. ) (Note ) This test was devel oped and its michael tical perfo rmanc e ayo cteri stics have been deter mined by [employer]. It has not been clear ed or appro alfredito by the FDA. This assay has been valid ated pursu ant to the CLIA regul ation s and is used for clini sarai purpo ses. Not Available [address], [address], 05/29/2021 12:33:31 05/26/1905/29/2021 TESTO STERO NE, FREE (DIAL YSIS) AND TOTAL ,MS testosterone , free 3.3 pg/mL 0.1-6. 4 (Note ) This test was devel oped and its michael tical perfo rmanc e ayo cteri stics have been deter mined by [employer]. It has not been clear ed or appro alfredito by the FDA. This assay has been valid ated pursu ant to the CLIA regul ation s and is used for clini sarai purpo ses. F med fusio n [address] [facility] [address] [facility] [address] [phone] Chris deutsch MD Not Available [facility] [address] [address] [place], [address], 05/29/2021 12:33:31 06/04/19 22 06/04/2021 CBC (INCL UDES DIFF/ PLT) white blood cell count 4.1 thous and/u L 3.8-10 .8 normal Not Available [facility] [address] [address] [place], [address], 06/04/2021 03:04:21 06/04/19 22 06/04/2021 CBC (INCL UDES DIFF/ PLT) red blood cell count 4.13 puma on/uL 3.80-5 .10 normal Not Available [address], [address], 06/04/2021 03:04:21 06/04/19 22 06/04/2021 CBC (INCL UDES DIFF/ PLT) hemoglobin 12.0 g/dL 11.7-1 5.5 normal Not Available [address], [address], 06/04/2021 03:04:21 06/04/19 22 06/04/2021 CBC (INCL UDES DIFF/ PLT) hematocrit 38.5 % 35.0-4 5.0 normal Not Available [address], [address], 06/04/2021 03:04:21 06/04/19 22 06/04/2021 CBC (INCL UDES DIFF/ PLT) MCV 93.2 fL 80.0-1 00.0 normal Not Available [address], [address], 06/04/2021 03:04:21 06/04/19 22 06/04/2021 CBC (INCL UDES DIFF/ PLT) MCH 29.1 pg 27.0-3 3.0 normal Not Available [address], [address], 06/04/2021 03:04:21 06/04/19 22 06/04/2021 CBC (INCL UDES DIFF/ PLT) MCHC 31.2 g/dL 32.0-3 6.0 low Not Available [address], [address], 06/04/2021 03:04:21 06/04/19 22 06/04/2021 CBC (INCL UDES DIFF/ PLT) RDW 12.6 % 11.0-1 5.0 normal Not Available [address], [address], 06/04/2021 03:04:21 06/04/19 22 06/04/2021 CBC (INCL UDES DIFF/ PLT) platelet count 206 thous and/u L 140-40 0 normal Not Available [address], [address], 06/04/2021 03:04:21 06/04/19 22 06/04/2021 CBC (INCL UDES DIFF/ PLT) MPV 11.1 fL 7.5-12 .5 normal Not Available [address], [address], 06/04/2021 03:04:21 06/04/19 22 06/04/2021 CBC (INCL UDES DIFF/ PLT) absolute neutrophils 2251 cells /uL 1500-7 800 normal Not Available [address], [address], 06/04/2021 03:04:21 06/04/19 22 06/04/2021 CBC (INCL UDES DIFF/ PLT) absolute lymphocytes 1312 cells /uL 850-39 00 normal Not Available [address], [address], 06/04/2021 03:04:21 06/04/19 22 06/04/2021 CBC (INCL UDES DIFF/ PLT) absolute monocytes 418 cells /uL 200-95 0 normal Not Available [address], [address], 06/04/2021 03:04:21 06/04/19 22 06/04/2021 CBC (INCL UDES DIFF/ PLT) absolute eosinophils 98 cells /uL 15-500 normal Not Available [address], [address], 06/04/2021 03:04:21 06/04/19 06/04/2021 CBC (INCL UDES DIFF/ PLT) absolute basophils 21 cells /uL 0-200 normal Not Available [address], [address], 06/04/2021 03:04:21 06/04/19 22 06/04/2021 CBC (INCL UDES DIFF/ PLT) neutrophils 54.9 % normal Not Available [address], [address], 06/04/2021 03:04:21 06/04/19 22 06/04/2021 CBC (INCL UDES DIFF/ PLT) lymphocytes 32.0 % normal Not Available [address], [address], 06/04/2021 03:04:21 06/04/19 22 06/04/2021 CBC (INCL UDES DIFF/ PLT) monocytes 10.2 % normal Not Available [address], [address], 06/04/2021 03:04:21 06/04/19 22 06/04/2021 CBC (INCL UDES DIFF/ PLT) eosinophils 2.4 % normal Not Available [address], [address], 06/04/2021 03:04:21 06/04/19 22 06/04/2021 CBC (INCL UDES DIFF/ PLT) basophils 0.5 % normal Not Available [address], [address], 06/04/2021 03:04:21 05/27/19 22 02/03/2021 MRI, knee, w/o contr ast No observ ation record ed. [facility] Not Available 2021 11:23:00 Result Notes None recorded. Problems No Known Problems Procedures Surgical History None recorded. Imaging Results Imaging Date Name Status LastModified by Organiz ation Details LastModified Time 02/03/2021 MRI, knee, w/o contrast completed [facility] Information not available 05/26/2021 11:23:00 Procedure Notes None recorded. Medical Equipment None Reported. Allergies No known drug allergies Medications Name Sig Start Date Stop Date Status Note LastModified by Organization Details LastModified Time trazodone 50 mg tablet 01/13 completed Not Available Not Available Not Available sulfamethoxaz ole 800 mg-trimethopr im 160 mg tablet 01/13 completed Not Available Not Available Not Available hydrocodone 10 mg-acetaminop hen 325 mg tablet Take 1 tablet every 4-6 hours by oral route as needed. 01/13 completed Not Available Not Available Not Available prednisolone acetate 1 % eye drops,suspens ion active Not Available Not Available Not Available diclofenac sodium 75 mg tablet,delaye d release Take 1 tablet twice a day by oral route with meals. active Not Available Not Available No t Available estradiol 10 mcg vaginal tablet active Not Available Not Available Not Available Vitals Date Recorded Body height Body mass index (BMI) Body weight Heart rate Systolic blood pressure Diastolic blood pressure Provider Name and Address Organization Details Last Updated DateTime 2 165.1 cm 21 kg/m2 31296.6 4 g 65 /min 127 mm[Hg] 81 mm[Hg] Thai Levlr [employer] [facility] 2 12:01:06 Date Recorded Body height Body mass index (BMI) Body weight Heart rate Systolic blood pressure Diastolic blood pressure Provider Name and Address Organization Details Last Updated DateTime 2 165.1 cm 21 kg/m2 64551.6 4 g 59 /min 117 mm[Hg] 76 mm[Hg] Wanda Hobbs [employer] [facility] 2 10:54:23 Date Recorded Body height Body mass index (BMI) Body weight Heart rate Systolic blood pressure Diastolic blood pressure Provider Name and Address Organization Details Last Updated DateTime 2 165.1 cm 21 kg/m2 10772.6 4 g 56 /min 138 mm[Hg] 86 mm[Hg] Thai Vega [employer] [facility] 2 11:31:55 Date Recorded Body height Body mass index (BMI) Body weight Heart rate Systolic blood pressure Diastolic blood pressure Provider Name and Address Organization Details Last Updated DateTime 2 165.1 cm 21.6 kg/m2 46130.0 1 g 52 /min 135 mm[Hg] 82 mm[Hg] Joann Mittal [employer] [facility] 16:18:43 Date Recorded Body height Body mass index (BMI) Body weight Provider Name and Address Organization Details Last Updated DateTime 01/13/2022 165.1 cm 21.6 kg/m2 03217.01 g Thai Brower [employer] [facility] 01/13/2022 14:37:38 Social History Question Answer Notes LastModified by Organizat ion Details LastModified Time What Is Your Level Of Alcohol Consumption? Moderate Information not available 05/25/2021 Are You Currently Employed? No Information not available 05/25/2021 Sex: Unknown Functional Status None recorded. Mental Status None recorded. Family History Relationship Description Onset Age of this Age Resolved Age Notes LastModified by Organization Details LastModified Time Mother Hypertensive disorder Not available 2021 12:16:26 Mother Arthritis Not available 05/25/2021 12:16:53 Father Arthritis Not available 05/25/2021 12:16:53 Medical History Condition Response Other Cancer N HIV or AIDS N Coronary Artery Disease N Gout N Kidney Stones N Hyperthyroidism N Breast Cancer N Hernia N Head Trauma/Injury N Lung Cancer N Hypothyroidism N Lung Disease N Depression N Blood Clots N COPD N Pacemaker N Parkinson's N Anxiety Disorder N Arthritis Y Alcohol / Substance Abuse N Kidney Cancer N Cancer N Stroke N Melanoma N Neck Injury N Leg or Foot Ulcers N High Cholesterol N Skin Cancer N Liver Disease N Rheumatoid Arthritis N Headaches N Fibromyalgia N Concussion N Kidney Disease N Heart Problems N Chronic use of Pain Medication N Prostate Cancer N Migraines N Thyroid Problems N Alzheimers N Autoimmune Disorder N Anemia N Multiple Sclerosis N Tendon Tear N Ulcers N Heart Attack ([place]) N Osteopenia N Diabetes N Bleeding Disorder N Seizures/Epilepsy N Cardiac Stent N Tuberculosis N A-FIB N Urinary Tract Infection N Back Problems N Diverticulitis N Asthma N Lupus N Peripheral Vascular Disease N Sleep Disorder N GERD/Reflux N Hepatitis N Aneurysm N Thyroid Cancer N Heart Disease N Pulmonary Embolism N Hypertension N Osteoporosis N Gynecological HistoryNo gynecological history recorded. Obstetrics History GPAL:G 0 P 0 0 0 0 Past Encounters Encounter ID Performer Location Encounter Start Date Encounter Closed Date Diagnosis/Indication Diagnosis SNOMED-CT Code Diagnosis ICD10 Code Diagnosis Note [id number] [facility] [address] [place] [address] 05/25/2021 11:36:54 05/25/2021 15:18:04 [id number] JOI SHELTON PA-C [facility] [address] [place] [address] 06/07/2021 10:40:17 06/28/2021 13:49:23 Pain of bilateral knee joints 2580743788 40180 M25.561 M25.562 Bilateral osteoarthritis of knees 6539343517 50926 M17.0 [id number] [facility] [address] [place], [place] [address] 08/30/2021 10:21:41 08/30/2021 14:08:24 [id number] [facility] [address] [place] [address] 12/16/2021 15:44:52 12/17/2021 08:55:59 [id number] [facility] [address] [place] [address] 01/13/2022 14:25:40 01/13/2022 15:56:05 Health Concerns Section Related Observation LastModified by Organization Detai ls LastModified Time None Recorded Concern Status LastModified by Organization Details LastModified Time None Recorded Advance Directives Directive None Recorded Payers Encounter Date Sequence Insurance Name Policy Number Policy Hi Covered Member ID Hi Member ID Guarantor Name 05/25/2021 1 *SELF PAY* Do nna Moss 05/25/2021 2 [employer] - [employer] - [employer] (EPO) [id number] Nisha Moss [id number] Nisha Moss 06/07/2021 1 *SELF PAY* Do nna Moss 06/07/2021 2 [employer] - [employer] - [employer] (EPO) [id number] Nisha Moss [id number] Nisha Moss 08/30/2021 1 *SELF PAY* Do nna Moss 08/30/2021 2 [employer] - [employer] - [employer] (EPO) [id number] Nisha Moss [id number] Nisha Moss 12/16/2021 1 *SELF PAY* Do tom Moss 01/13/2022 1 *SELF PAY* Do tom Moss 01/13/2022 2 [employer] - [employer] - [employer] (EPO) [id number] Nisha Moss [id number] Nisha Moss Notes Date Note Type Note Provider Name and Address Organization Details Recorded Time 06/07/2021 text/html 60 y/o F present s for group medical visit focusing on treatment optimization for upcoming biologic treatment. Patient has an upcoming BMAC treatment scheduled for bilateral knees on 06/07/2021. Patient presents today for lab review and to discuss post-procedural recommendations. Today, she reports continued knee pain. She is generally very active and enjoys cycling, hiking, and pickle ball. Her goal for treatment is to be able to return to playing pickle ball. She states she generally sleeps well, other than waking up occasionally in the middle of the night. She does report recently experiencing some bloating and belching after meals, but otherwise denies recent illness, chest pain, abdominal pain, SOB. JOI SHELTON PA-C [id number], [place], [address], [facility], [facility] 06/07/2021 16:49:44 OBGyn Episode No OBEpisode recorded.
== END 2024-05-02 10:35 | disposition home or self-care (01) ==
PROVIDERS: PCP Nurse Practitioner Family; Visit Provider Nurse Practitioner Family
DX: Z01.818 Encounter for other preprocedural examination (principal); I45.10 Unspecified right bundle-branch block
CPT/HCPCS: 93005

== ENCOUNTER 2024-10-09 13:47 | Outpatient (CLI) | payer MEDICARE, OTHER, SELFPAY ==
--- NOTE | ~2024-10-09 | MM_ITS ---
EXAMINATION: MM screening ruth BI w sarah HISTORY: Screening TECHNIQUE: Craniocaudal and mediolateral oblique 3-D tomosynthesis images were obtained and synthetic 2-D images were generated. CAD analysis was submitted and interpreted. COMPARISON: Comparison to multiple prior studies sequentially, with oldest reviewed study dated 09/05/2017. BREAST PARENCHYMAL COMPOSITION: There are scattered areas of fibroglandular density. FINDINGS: There is no evidence of suspicious mass, calcification, or architectural distortion to suggest malignancy in either breast. IMPRESSION: 1. No mammographic evidence of malignancy. 2. Recommend routine screening mammography in one year. BI-RADS Category 1: Negative Reviewed, dictated and finalized at location B.
== END 2024-10-09 13:48 | disposition home or self-care (01) ==
PROVIDERS: PCP Nurse Practitioner Family; Visit Provider Obstetrics & Gynecology Gynecology
DX: Z12.31 Encounter for screening mammogram for malignant neoplasm of breast (principal)
CPT/HCPCS: 77063; 77067

== ENCOUNTER 2024-10-11 07:49 | Outpatient (CLI) | payer MEDICARE, OTHER, SELFPAY ==
--- NOTE | ~2024-10-11 | MR_ITS ---
EXAMINATION: MR shoulder LT wo con DATE: 10/11/2024 08:20 INDICATION: Left shoulder pain TECHNIQUE: Magnetic resonance imaging (MRI) of the left shoulder was performed without intravenous contrast. Sequences included axial PD-weighted FS FSE, coronal oblique PD-weighted FS FSE, coronal oblique T2-weighted FS FSE, sagittal PD-weighted FS FSE, and sagittal T1-weighted SE. COMPARISON: None. FINDINGS: Coracoacromial arch: The acromion undersurface is curved in morphology (type II). The coracoacromial ligament is normal. Mild acromioclavicular osteoarthritis. Rotator cuff: Moderate supraspinatus tendinopathy without tear. The infraspinatus and teres minor tendons are normal. The subscapularis tendon is normal. Normal rotator cuff muscle bulk and signal. Biceps tendon, glenoid labrum and glenohumeral cartilage: Moderate tendinopathy without definitive tear of the intra-articular long head biceps tendon. There is a tear of the posterior superior glenoid labrum extends from the 12:00 to 9:00 position. The torn labrum has a macerated appearance with secondary heterotopic ossification 10:00-11:00 position. Partial-thickness chondral ulceration with chondral surface irregularity along the humeral head most severe near the apex of the humeral head with there are small central subchondral osteophytes and mild subarticular edema-like signal change. Moderate size marginal osteophytes along the inferior margin of the humeral head. Additional partial-thickness cartilage loss with relatively smooth chondral surface and along the posterior margin of the glenoid. There is a single small focus of subarticular cystlike change at the 12:00 position of the posterior superior rim of the glenoid. Fluid: Mild bicipital tenosynovitis. There is a moderate-sized glenohumeral joint effusion with synovitis at the posterior and axillary recesses of the joint space. Small amount of fluid in the subacromial/subdeltoid bursa consistent with mild bursitis. Bones: Bone alignment is normal. No fracture or pathologic marrow replacing process. IMPRESSION: 1. Mild to moderate glenohumeral osteoarthritis with high-grade chondromalacia near the apex of the humeral head and likely secondary moderate sized glenohumeral joint effusion. 2. 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 3. Moderate supraspinatus tendinopathy without discrete tear. 4. Mild bicipital tenosynovitis with moderate tendinopathy without tear of the intra-articular long head biceps tendon. 5. Mild subacromial/subdeltoid bursitis. Reviewed, dictated and finalized at location A. IMPRESSION: 1. Mild to moderate glenohumeral osteoarthritis with high-grade chondromalacia near the apex of the humeral head and likely secondary moderate sized glenohume ral joint effusion. 2. Likely chronic tear of the superior to posterior glenoid labrum with some li demond secondary heterotopic ossification of the torn posterior superior labrum. 3. Moderate supraspinatus tendinopathy without discrete tear. 4. Mild bicipital tenosynovitis with moderate tendinopathy without tear of the intra-articular long head biceps tendon. 5. Mild subacromial/subdeltoid bursitis.
== END 2024-10-11 07:50 | disposition home or self-care (01) ==
LOC: MICIMG 07:49
PROVIDERS: PCP Nurse Practitioner Family; Visit Provider Physician Assistant Surgical
DX: M19.012 Primary osteoarthritis, left shoulder (principal); M75.82 Other shoulder lesions, left shoulder; M94.212 Chondromalacia, left shoulder; M75.22 Bicipital tendinitis, left shoulder; M75.52 Bursitis of left shoulder
CPT/HCPCS: 73221